=== PATIENT | female | born 1980 | race Caucasian/White ===

== ENCOUNTER 2017-06-03 11:07 | Emergency (ER) | payer BC ==
--- NOTE | 2017-06-03 11:54 | ERNOTE ---
Dyspnea - Date Date of Service: 06/03/17 - General Presenting Symptoms: shortness of breath Time Seen by Provider: 06/03/17 11:44 Source: patient, RN notes reviewed Exam Limitations: no limitations - Immun/Allergies/Home Medications Immunizations: IMMUNIZATION HX Immunizations Up to Date Yes History of Influenza Vaccine Yes Hx Pneumococcal Vaccination No Allergies/Adverse Reactions: Allergies No Known Allergies Allergy (Verified 06/03/17 11:23) Home Medications: HOME MEDICATIONS NK [No Home Medication] 06/03/17 [Last Taken Unknown] - History of Present Illness Narrative: 37 y/o female to ED by private vehicle for dyspnea that began while she was on her treadmill at 0900. She stopped and rested, but the shortness of breath did not improve and has been persistent since. She reports that several family members have had bronchitis, and that she has had an occasional cough. She also had a headache this morning and took Excedrin Migraine at 0800. The headache has resolved. She denies any pain. She has no prior history of DVT. 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 Denies: fever/chills , sweating, chest pain/discomfort, wheezing, leg/calf pain, ankle/leg swelling, dizziness, lightheadedness, weakness, anxiety, tingling of hands/face Prior Treatment: Denies: recently seen Review of Systems - Review of Systems Constitutional: Absent: recent illness, fever, chills, fatigue, malaise EYE: Present: no symptoms reported ENT: Absent: nose congestion, sore throat Respiratory: Present: shortness of breath, cough. Absent: wheezing, stridor Cardiology: Present: palpitations. Absent: chest pain, syncope, edema, claudication Gastrointestinal/Abdominal: Absent: nausea, abdominal pain Genitourinary: Present: no symptoms reported Musculoskeletal: Absent: back pain, muscle pain Skin: Absent: rash, lesions, lumps Neurological: Absent: headache, dizziness/light-headedness Endocrine: Present: no symptoms reported Hematologic/Lymphatic: Present: no symptoms reported Psych: Present: no symptoms reported - Patient's Past Medical History Patient History - Medical: Other Patient History - Cardiac/Respiratory: Hypertension, Hyperlipidemia Patient History - Cancer: No Hx of Cancer Patient History - Surgical Procedures: , D & C, Other Patient History - Other: None LMP (Calendar): 05/14/17 - Family History Mother Family History - Medical: Fibromyalgia Family History - Cardiac/Respiratory: Hypertension, TIA Father Family History - Medical: Family History - Cardiac/Respiratory: No pertinent hx - Social History Living Situations: spouse Abuse History: No History of abuse Psych History: No pertinent hx Smoking Status: Never smoker Alcohol Use: rarely Drug Use: none - Immunizations Immunizations Up to Date: Yes Hx Pneumococcal Vaccination: No History of Influenza Vaccine: Yes Physical Exam - Physical Exam General Appearance: Present: wd/wn, alert, mild distress Eye Exam: Normal inspection: bilateral Ears, Nose, Throat: Present: normal ENT inspection Neck: Present: normal inspection, nontender, supple Respiratory: Present: normal breath sounds, chest nontender, lungs clear, respiratory distress - mild dyspnea, accessory muscle use - mild Cardiovascular/Chest: Present: no murmur, normal peripheral pulses, tachycardia Peripheral Pulses: N=norm/S=strong/W=weak/B=bound/A=absent: Dorsalis-pedis (R): Strong, Dorsalis-pedis (L): Strong Extremity Exam: Present: normal inspection, normal range of motion Neurological Exam: Present: alert, oriented, normal mood/affect, no motor/ sensory deficits Skin Exam: Present: warm/dry, other - lips appear slightly dusky ED Progress - Results and Orders Patient's Lab Results:: I have reviewed the patient's lab results. - Vital Signs Patient's Vital Signs:: I have reviewed the patient's vital signs. Vital Signs: Vital Signs 06/03/17 06/03/17 11:17 11:48 Temperature 36.9 C 36.8 C Pulse Rate 84 92 Respiratory 16 Rate Blood Pressure 161/76 155/86 O2 Sat by Pulse 100 99 Oximetry - EKG EKG: NSR EKG read: Reviewed by me - X-Ray X-Ray #1 X-Ray: chest Interpretation: Reviewed by me X-ray Comments: Chest PA Lateral * Hyperinflated lung volumes. No consolidation or mass. No pneumothorax or pleural fluid collections. Cardiac and mediastinal silhouettes are normal. Trachea is in normal position. Bones show degenerative changes of the spine. IMPRESSION: 1. No focal acute cardiopulmonary finding. 2. Hyperinflated lungs. Electronically signed by Marcelo Amezcua M.D.. - Progress/Reassessment Chief Complaint: Dyspnea Progress:: Improved Plan - Plan Plan: labs and chest xray unremarkable, patient's dyspnea has resolved without intervention, suspect that increasing her activity level in addition to having coffee and Excedrin caused the shortness of breath - which was then worsened by anxiety. Discussed test results and indications for needing follow up. Departure Clinical Impression: Acute dyspnea - Departure Disposition: Home self-care Condition: Good Additional Instructions: Increase water intake Avoid excess caffeine Avoid overexertion and excessive heat exposure Follow up if symptoms return Referrals: Valorie Weems MD [Primary Care Provider] -
[2017-06-03 12:11] LABS: Hematocrit 34.5 % (37.0-47.0); Mean Cell Volume 73.4 fl (78-100); Mean Corpuscular Hemoglobin 23.4 pg (27-31); Mean Corpuscular Hgb Conc 31.9 g/dl (32-36); Neutrophil # 5.7 K/mm3 (1.3-6.0); Neutrophil % 77.4 % (42-75.0); Platelet Count 177 K/mm3 (150-450); Red Cell Distribution Width 14.9 % (11.5-14.0); White Blood Count 7.4 K/mm3 (4.0-10.5)
[2017-06-03 12:26] LABS: Albumin * 3.8 gm/dl (3.4-5.0); Anion Gap 14.8 mmol/L (6.8-13.8); Bilirubin, Total 0.3 mg/dL (0.0-1.1); Ca. Corrected For Albumin 8.7 mg/dL (8.4-10.2); Calcium * 8.9 mg/dL (7.9-10.9); Carbon Dioxide 22.5 mmol/L (24-32.6); Potassium 4.3 mmol/L (3.4-4.6); Total Protein 7.9 gm/dL (6.2-8.2)
[2017-06-03 14:20] VITALS: BP 122/83
== END 2017-06-03 14:20 | disposition home or self-care (01) ==
LOC: ER 11:07
DX: R06.00 Dyspnea, unspecified (principal)

== ENCOUNTER 2017-06-28 17:21 | Emergency (ER) | payer BC ==
[2017-06-28 17:32] VITALS: BP 164/84
--- NOTE | 2017-06-28 18:15 | ERNOTE ---
Chest Pain/Cardiac HPI Chief Complaint: General Assessment Time Seen by Provider: 06/28/17 17:40 Source: patient Exam Limitations: no limitations Immunizations: IMMUNIZATION HX Immunizations Up to Date Yes History of Influenza Vaccine Yes Hx Pneumococcal Vaccination No Allergies/Adverse Reactions: Allergies No Known Allergies Allergy (Verified 06/28/17 17:31) Home Medications: HOME MEDICATIONS NK [No Home Medication] 06/03/17 [Last Taken Unknown] Narrative: Patient had an episode of palpitations three weeks ago, was seen in the ER, had another episode a week later while on vacation, was seen in the ER in [place], had a chest CT done which showed an incidental thyroid nodule. She followed up with Dr Weems, had further testing done, including a Holter monitor (results are not available yet). She was put on zithromax for chest congestion (which she started two days ago) and given a RX for lexapro for anxiety. She took the first dose of lexapro during the night as she has had a hard time sleeping. She has not felt right since, has been reading online and is concerned about interaction between lexapro and zithromax. She denies any acute stressors, does not think that she has anxiety nor wants to be treated for it. She is concerned about what is going on in her body Review of Systems - Review of Systems Constitutional: Present: recent illness - bronchitis, fatigue. Absent: fever, chills EYE: Absent: double vision ENT: Present: sore throat - slight. Absent: ear pain, nose congestion, nasal drainage Respiratory: Present: cough - slight. Absent: shortness of breath Cardiology: Absent: chest pain Gastrointestinal/Abdominal: Present: diarrhea - one episode of diarrhea this afternoon ( day2 of zithromax). Absent: nausea, vomiting, abdominal pain Genitourinary: Present: no symptoms reported Musculoskeletal: Absent: back pain Skin: Absent: rash Neurological: Absent: emotional problems, headache, dizziness/light-headedness - Patient's Past Medical History Patient History - Medical: Other Patient History - Cardiac/Respiratory: Hypertension, Hyperlipidemia, Other Patient History - Cancer: No Hx of Cancer Patient History - Surgical Procedures: , D & C, Hernia Repair Patient History - Other: None LMP (Calendar): 05/14/17 - Family History Mother Family History - Medical: Fibromyalgia Family History - Cardiac/Respiratory: Hypertension, TIA Father Family History - Medical: Family History - Cardiac/Respiratory: No pertinent hx - Social History Living Situations: home Abuse History: No History of abuse Psych History: No pertinent hx Smoking Status: Never smoker Alcohol Use: rarely Drug Use: none - Immunizations Immunizations Up to Date: Yes Hx Pneumococcal Vaccination: No History of Influenza Vaccine: Yes Physical Exam - Physical Exam General Appearance: Present: wd/wn, alert, no apparent distress, anxious Head Exam: Present: normal inspection Eye Exam: Normal inspection: bilateral, PERRL: bilateral Ears, Nose, Throat: Present: normal ENT inspection, pharyngeal erythema - minimal. Absent: pharyngeal swelling Respiratory: Present: no respiratory distress, normal breath sounds, no accessory muscle use, lungs clear Cardiovascular/Chest: Present: regular rate, rhythm - HR 90's, no murmur Gastrointestinal/Abdominal: Present: normal bowel sounds, nontender, nondistended, soft Extremity Exam: Present: no edema Neurological Exam: Present: alert, oriented, normal mood/affect Skin Exam: Present: normal color, warm/dry ED Progress - Vital Signs Patient's Vital Signs:: I have reviewed the patient's vital signs. Vital Signs: Vital Signs 06/28/17 17:27 Temperature 36.6 C Pulse Rate 94 Respiratory 16 Rate Blood Pressure 164/84 O2 Sat by Pulse 100 Oximetry - EKG EKG: NSR, nonspecific ST T wave changes, unchanged from - 06/03/17 EKG read: Interp. by me - Progress/Reassessment Chief Complaint: General Assessment Progress Note-Subjective: 06/28/17 18:20 discussed differential and symptoms at length. Lexapro is unlikely to cause significant problems (or help) with only one dose. finish zithromax since she started it palpitations could be caused by SVT's they have not been able to catch (uncle was diagnosed with SVT after long work up she seems to have elevated level of alertness (or worry) Departure - Departure Clinical Impression: Palpitations Disposition: Home self-care Condition: Good Instructions: Palpitations, [id number] Additional Instructions: finish the antibiotic that you started follow up with Dr Weems tomorrow as scheduled for further testing Referrals: Valorie Weems MD [Primary Care Provider] -
== END 2017-06-28 18:20 | disposition home or self-care (01) ==
LOC: ER 17:21
DX: R00.2 Palpitations (principal)

== ENCOUNTER 2017-07-29 22:02 | Emergency (ER) | payer BC ==
[2017-07-29 22:12] VITALS: BP 157/80
[2017-07-29] MEDS ORDERED: CEPHALEXIN MONOHYDRATE 250 MG CAPSULE PO ONE (22:32)
[2017-07-29] MEDS ORDERED: CEPHALEXIN MONOHYDRATE 250 MG CAPSULE ONE (22:33)
--- NOTE | 2017-07-29 22:42 | ERNOTE ---
Integumentary HPI - Narrative Date of Service: 07/29/17 - General Presenting Symptoms: rash Time Seen by Provider: 07/29/17 22:27 Source: patient - Immun/Allergies/Home Medications Immunizations: IMMUNIZATION HX Immunizations Up to Date Yes History of Influenza Vaccine Yes Hx Pneumococcal Vaccination No Allergies/Adverse Reactions: Allergies Allergy/AdvReac Type Severity Reaction Status Date / Time No Known Allergies Allergy Verified 06/28/17 17:31 Home Medications: HOME MEDICATIONS Cephalexin Monohydrate [Keflex] 500 mg PO QID #40 cap 07/29/17 [Last Taken Unknown] Multivitamins [Multivitamin Scotty] 1 cap PO DAILY 07/29/17 [Last Taken Unknown] - History of Present Illness Narrative: 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 She says that this came up part during the day today. She says that she bumped it against something and that's when she noted it starting to hurt. She says that it only hurts on something brushes against it. She does shave her legs. She did have some bug bites on the leg earlier in the week. She denies having any fever. She denies having any history of cellulitis. No other complaints Review of Systems - Review of Systems Constitutional: Present: no symptoms reported EYE: Present: no symptoms reported ENT: Present: no symptoms reported Respiratory: Present: no symptoms reported Cardiology: Present: no symptoms reported Gastrointestinal/Abdominal: Present: no symptoms reported Genitourinary: Present: no symptoms reported Musculoskeletal: Present: no symptoms reported Skin: Present: rash, other - redness, warmth, sensitivity to touch Neurological: Present: no symptoms reported Endocrine: Present: no symptoms reported Hematologic/Lymphatic: Present: no symptoms reported Psych: Present: no symptoms reported All Other Systems: All systems neg except as marked - Patient's Past Medical History Patient History - Medical: Other Patient History - Cardiac/Respiratory: Other Patient History - Cancer: No Hx of Cancer Patient History - Surgical Procedures: , D & C, ENT, Hernia Repair, Orthopedic Patient History - Other: None LMP (females 10-50): 3 weeks LMP (Calendar): 05/14/17 - Family History Mother Family History - Medical: Fibromyalgia Family History - Cardiac/Respiratory: Hypertension, TIA Father Family History - Medical: Family History - Cardiac/Respiratory: No pertinent hx - Social History Living Situations: spouse Abuse History: No History of abuse Psych History: No pertinent hx Have you smoked in the past 12 months: No Do you dip or chew tobacco: No Alcohol Use: rarely Drug Use: none - Immunizations Immunizations Up to Date: Yes Hx Pneumococcal Vaccination: No History of Influenza Vaccine: Yes Physical Exam - Physical Exam General Appearance: Present: wd/wn, alert, no apparent distress Head Exam: Present: normal inspection, no evidence of injury Eye Exam: Normal inspection: bilateral, PERRL: bilateral, EOMI: bilateral Ears, Nose, Throat: Present: normal ENT inspection Neck: Present: normal inspection, nontender Respiratory: Present: no respiratory distress, normal breath sounds, no accessory muscle use, chest nontender, lungs clear Cardiovascular/Chest: Present: regular rate, rhythm, no murmur, normal peripheral pulses Gastrointestinal/Abdominal: Present: normal bowel sounds, nondistended, soft Extremity Exam: Present: other - the patient has no significant lower extremity swelling. The left lower extremity does have a red area which is better described in the skin exam Neurological Exam: Present: alert, oriented, normal mood/affect, no motor/ sensory deficits Skin Exam: Present: other - the patient has a blotchy erythematous area which is warm and exquisitely sensitive to touch. Even the lightest touch causes pain. This is located on the anterior lateral aspect of the left dinero. This is long-term down the bone. This is consistent with cellulitis. Lymphatic Exam: Present: no adenopathy ED Progress - Vital Signs Patient's Vital Signs:: I have reviewed the patient's vital signs. Vital Signs: Vital Signs 07/29/17 22:05 Temperature 36.2 C L Pulse Rate 80 Respiratory 14 Rate Blood Pressure 157/80 O2 Sat by Pulse 100 Oximetry - Progress/Reassessment Chief Complaint: Rash Departure Clinical Impression: Cellulitis - Departure Disposition: Home self-care Condition: Stable Instructions: Cellulitis, Adult, [id number] Additional Instructions: As we discussed, your skin and leg appear to have an infection called cellulitis. This is a bacterial infection of the superficial skin structures. I suspect that this is a risen duty or shaving. Certainly bumping against something or hitting a bug bite could cause this as well. The most common reason I see it is shaving. I've given Unasyn antibiotics here and I want you to take them. I want you to take the prescribed antibiotics for all 10 days. He need to keep a close eye on this area, and if the redness starts to move significantly upper leg or down her leg you need to return to the ER. He should start feeling better within 12- 24 hours. I want you to return immediately if you develop a high fever or any new concerning symptoms. Try to shave with a clean razor blade whenever possible, but this is not a hygiene issue. This happens in adults frequently. Follow-up with her family doctor. Referrals: Valorie Weems MD [Primary Care Provider] - Prescriptions: Cephalexin Monohydrate [Keflex] 500 mg PO QID #40 cap
== END 2017-07-29 22:40 | disposition home or self-care (01) ==
LOC: ER 22:02
DX: L03.116 Cellulitis of left lower limb (principal)

== ENCOUNTER 2017-07-31 10:00 | Emergency (ER) | payer BC ==
[2017-07-31 10:08] VITALS: BP 149/82
[2017-07-31 10:26] LABS: Hematocrit 37.2 % (37.0-47.0); Hemoglobin 11.5 gm/dL (12.5-16.0); Mean Corpuscular Hemoglobin 23.2 pg (27-31); Mean Corpuscular Hgb Conc 30.9 g/dl (32-36); Mean Platelet Volume 10.8 fl (6.0-9.5); Platelet Count 232 K/mm3 (150-450); Red Blood Count 4.96 M/mm3 (4.2-5.4); Red Cell Distribution Width 15.9 % (11.5-14.0); White Blood Count 4.7 K/mm3 (4.0-10.5)
[2017-07-31 10:27] LABS: Total Cells Counted 100
[2017-07-31 10:37] LABS: ALT 17 U/L (19-67); AST 12 U/L (0-48); Albumin * 3.7 gm/dl (3.4-5.0); Alkaline Phosphatase * 69 U/L (50-170); Anion Gap 14.5 mmol/L (6.8-13.8); BUN/Creatinine Ratio 16.9 (9.0-21.6); Bilirubin, Total 0.4 mg/dL (0.0-1.1); Blood Urea Nitrogen 11 mg/dL (3-23); Ca. Corrected For Albumin 8.4 mg/dL (8.4-10.2); Calcium * 8.5 mg/dL (7.9-10.9); Carbon Dioxide 24.7 mmol/L (24-32.6); Chloride 105 mmol/L (97-106); Glucose * 74 mg/dL (70-110); Potassium 4.2 mmol/L (3.4-4.6); Sodium 140 mmol/L (132-142); Total Protein 7.9 gm/dL (6.2-8.2)
[2017-07-31 10:42] LABS: Atypical (Reactive) Lymph 7 % (0-2); Lymphocyte 33 % (20-51); Monocyte 6 % (0-9); Neutrophil 54 % (42-75); Neutrophil # 2.5 K/mm3 (1.3-6.0)
[2017-07-31 10:43] LABS: Microcytosis 1+; Poikilocytosis Trace
[2017-07-31 10:46] LABS: Hypochromia 2+
[2017-07-31 10:47] LABS: Platelet Estimate Normal (NORMAL)
--- NOTE | 2017-07-31 10:50 | ERNOTE ---
Integumentary HPI - Narrative Date of Service: 07/31/17 - General Presenting Symptoms: rash Time Seen by Provider: 07/31/17 10:06 Source: patient Exam Limitations: no limitations - Immun/Allergies/Home Medications Immunizations: IMMUNIZATION HX Immunizations Up to Date Yes History of Influenza Vaccine Yes Hx Pneumococcal Vaccination No Allergies/Adverse Reactions: Allergies Allergy/AdvReac Type Severity Reaction Status Date / Time No Known Allergies Allergy Verified 07/31/17 10:08 Home Medications: HOME MEDICATIONS Cephalexin Monohydrate [Keflex] 500 mg PO QID #40 cap 07/29/17 [Last Taken Unknown] Multivitamins [Multivitamin Scotty] 1 cap PO DAILY 07/29/17 [Last Taken Unknown] Sulfamethoxazole/Trimethoprim [Bactrim Ds] 1 tab PO BID #28 tab 07/31/17 [Last Taken Unknown] - History of Present Illness Narrative: Pt. comes in with c/o rash on her L lower leg for four days. Pt. was seen two days ago here and stated on Unasyn for cellulitis. Pt. denies any SOB, CP, NVD, swelling but states that she had a low grade temperature of 99.2. Pt. also states taht she has been feeling malaise for the past 24 hours. Pt. states that she has taken her abx as prescribed without missing a dose. Review of Systems - Review of Systems Constitutional: Present: fever, malaise. Absent: chills EYE: Present: no symptoms reported ENT: Present: no symptoms reported Respiratory: Present: no symptoms reported. Absent: shortness of breath, cough , wheezing Cardiology: Present: no symptoms reported. Absent: chest pain, palpitations, edema Genitourinary: Present: no symptoms reported Musculoskeletal: Present: no symptoms reported. Absent: back pain, joint pain Skin: Present: rash - LLE cellilitic lesions on L leg Neurological: Present: no symptoms reported. Absent: headache, dizziness/light- headedness, numbness, tingling All Other Systems: All systems neg except as marked - Patient's Past Medical History Patient History - Medical: No pertinent hx Patient History - Cardiac/Respiratory: No pertinent hx Patient History - Cancer: No Hx of Cancer Patient History - Surgical Procedures: , D & C, ENT, Hernia Repair, Orthopedic Patient History - Other: None LMP (females 10-50): 1 month LMP (Calendar): 05/14/17 - Family History Mother Family History - Medical: Fibromyalgia Family History - Cardiac/Respiratory: Hypertension, TIA Father Family History - Medical: Family History - Cardiac/Respiratory: No pertinent hx - Social History Living Situations: spouse Abuse History: No History of abuse Psych History: No pertinent hx Smoking Status: Never smoker Have you smoked in the past 12 months: No Do you dip or chew tobacco: No Alcohol Use: rarely Drug Use: none - Immunizations Immunizations Up to Date: Yes Hx Pneumococcal Vaccination: No History of Influenza Vaccine: Yes Physical Exam - Physical Exam General Appearance: Present: wd/wn, alert, no apparent distress Head Exam: Present: normal inspection, no evidence of injury Eye Exam: Normal inspection: bilateral, PERRL: bilateral, EOMI: bilateral Respiratory: Present: no respiratory distress, normal breath sounds, no accessory muscle use, chest nontender, lungs clear Cardiovascular/Chest: Present: regular rate, rhythm, no murmur, normal peripheral pulses Back Exam: Present: normal inspection, normal range of motion, no CVA tenderness , no vertebral tenderness Extremity Exam: Present: other - red and tender in cellulitic spots on her LLE anterior. Absent: calf tenderness Neurological Exam: Present: alert, oriented, normal mood/affect, no motor/ sensory deficits Skin Exam: Present: warm/dry, other - redness as desribed above. Absent: pallor ED Progress - Date and Time Seen: Date and Time: 07/31/17 10:55 Pt. 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 on Bactrim. 07/31/17 10:59 Pt. not on Unasyn as per Dr Osei previous not but is on Keflex so will have continue that for three more days for five total. - Vital Signs Patient's Vital Signs:: I have reviewed the patient's vital signs. Vital Signs: Vital Signs 07/31/17 10:03 Temperature 37.1 C Pulse Rate 75 Respiratory 15 Rate Blood Pressure 149/82 O2 Sat by Pulse 100 Oximetry - Progress/Reassessment Chief Complaint: Cellulitis Departure Clinical Impression: Cellulitis Qualifiers: Site of cellulitis: extremity Site of cellulitis of extremity: lower extremity Laterality: left Qualified Code(s): L03.116 - Cellulitis of left lower limb - Departure Disposition: Home self-care Condition: Good Instructions: Cellulitis, Adult, [id number] Additional Instructions: Please start bactrim do not stop Keflex for three more days and follow up with primary provider in 2-3 days. Referrals: Valorie Weems MD [Primary Care Provider] - Prescriptions: Sulfamethoxazole/Trimethoprim [Bactrim Ds] 1 tab PO BID #28 tab
[2017-07-31] MEDS ORDERED: METHYLPREDNISOLONE ACETATE 80 MG/ML VIAL IM ONE (10:55)
[2017-07-31] MEDS ORDERED: METHYLPREDNISOLONE ACETATE 80 MG/ML VIAL ONE (10:59)
== END 2017-07-31 11:05 | disposition home or self-care (01) ==
LOC: ER 10:00
DX: L03.116 Cellulitis of left lower limb (principal)